=== PATIENT | male | born 1970 | race Caucasian/White ===

== ENCOUNTER 2021-08-18 14:14 | Emergency (ER) | payer OTHER ==
--- NOTE | 2021-08-18 14:40 | ERPHSYRPT ---
- History of Present Illness Time Seen by Provider: 08/18/21 14:39 Source: patient Exam Limitations: no limitations Patient Subjective Stated Complaint: pt here for covid. co loss of taste and smell.headache,fever. he states ill for 7 days had home postive today Triage Nursing Assessment: pt alert, walked in, resp easy, face mask in place, skin w/d/p. has occ cough Physician History: This is a 50-year-old white male who has been having classic COVID-19 symptoms including fever, loss of taste, cough, myalgias and arthralgias, mild shortness of breath, single episode of vomiting greater than 24 hours ago. Patient has had the symptoms for a week they are not worse but they are not significantly improved either. He just wanted to be evaluated to see if there is anything that can be done to help him feel better faster. Patient is now tolerating oral intake. Timing/Duration: week(s) Severity: mild Modifying Factors: Improves With: nothing Associated Symptoms: shortness of breath (Mild), cough (Mild), No chest pain Allergies/Adverse Reactions: No Known Drug Allergies Allergy (Unverified 08/18/21 14:35) Hx Tetanus, Diphtheria Vaccination/Date Given: No Hx Influenza Vaccination/Date Given: No Hx Pneumococcal Vaccination/Date Given: No Immunizations Up to Date: Yes Travel Risk - International Travel Have you traveled outside of the country in past 3 weeks: No - Coronavirus Screening Are you exhibiting any of the following symptoms?: Yes Symptoms: Fever, Cough: New Onset, Vomiting/Diarrhea, Loss of Taste or Smell, Headaches/Body Aches/Fatigue Close contact with a COVID-19 positive Pt in past 14-21 Days: No - Vaccine Status Have you recieved a Covid-19 vaccination: No - Review of Systems Constitutional: Fever Eyes: No Symptoms Ears, Nose, & Throat: No Symptoms Respiratory: Cough, Dyspnea Cardiac: No Symptoms Abdominal/Gastrointestinal: Vomiting (Single episode 2 days ago) Genitourinary Symptoms: No Symptoms Musculoskeletal: Arthralgias, Myalgias Skin: No Symptoms Neurological: No Symptoms Psychological: No Symptoms Endocrine: No Symptoms Hematologic/Lymphatic: No Symptoms Immunological/Allergic: No Symptoms All Other Systems: Reviewed and Negative - Past Medical History Pertinent Past Medical History: Yes Other Medical History: cancer of leg - Past Surgical History Past Surgical History: Yes Other Surgical History: removal of ca from leg - Social History Smoking Status: Never smoker Exposure to second hand smoke: No Drug Use: none Patient Lives Alone: No - Nursing Vital Signs Nursing Vital Signs: Initial Vital Signs Temperature 97.7 F 08/18/21 14:27 Pulse Rate 88 08/18/21 14:27 Respiratory Rate 18 08/18/21 14:27 Blood Pressure 150/99 08/18/21 14:27 O2 Sat by Pulse Oximetry 97 08/18/21 14:27 Pain Scale Pain Intensity 0 - Physical Exam General Appearance: no apparent distress, alert Eye Exam: PERRL/EOMI, eyes nml inspection Ears, Nose, Throat Exam: normal ENT inspection, moist mucous membranes Neck Exam: normal inspection, non-tender, supple, full range of motion Respiratory Exam: normal breath sounds, lungs clear, airway intact, No chest tenderness, No respiratory distress Cardiovascular Exam: regular rate/rhythm, normal heart sounds, normal peripheral pulses Gastrointestinal/Abdomen Exam: soft, normal bowel sounds, No tenderness Rectal Exam: not done Back Exam: normal inspection, normal range of motion, No CVA tenderness, No vertebral tenderness Extremity Exam: normal inspection, normal range of motion, pelvis stable Neurologic Exam: alert, oriented x 3, cooperative, 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, normal mood/affect, nml cerebellar function, nml station & gait, sensation nml Skin Exam: normal color, warm, dry SpO2 Interpretation: normal SpO2: 97 O2 Delivery: Room Air - Course Nursing assessment & vital signs reviewed: Yes Ordered Tests: Active Orders 24 hr Category Date Time Status Isolation, Initiate & Maintain STAT Care 08/18/21 14:41 Active Pulse Oximetry (ED) STAT Care 08/18/21 14:40 Completed CHEST 1 VIEW (PORTABLE) Stat Exams 08/18/21 14:41 Completed INFLUENZA A+B HEATHER Stat Lab 08/18/21 15:20 Completed Medication Summary Discontinued Medications Generic Name Dose Route Start Last Admin Trade Name Freq PRN Reason Stop Dose Admin Hydrocodone Bitart/Acetaminophen 10 ml 08/18/21 15:20 08/18/21 15:44 Hydrocodone-Acetamin 2.5-108/5 Ml Solution PO 08/18/21 15:21 10 ml STAT STA Administration Hydrocodone Bitart/Acetaminophen Confirm 08/18/21 15:42 Hydrocodone-Acetamin 2.5-108/5 Ml Solution Administered 08/18/21 15:43 Dose 10 ml .ROUTE .STK-MED ONE Sodium Chloride 1,000 mls @ 100 mls/hr 08/18/21 14:45 08/18/21 15:41 Sodium Chloride 0.9% 1000 Ml IV 09/17/21 14:44 Not Given .Q10H ASHLEE Ondansetron HCl 4 mg 08/18/21 15:20 08/18/21 15:44 Zofran Odt 4 Mg PO 08/18/21 15:21 4 mg STAT ONE Administration Ondansetron HCl Confirm 08/18/21 15:42 Zofran Odt 4 Mg Administered 08/18/21 15:43 Dose 4 mg .ROUTE .STK-MED ONE Prednisone 20 mg 08/18/21 15:22 08/18/21 15:44 Deltasone 20 Mg PO 08/18/21 15:23 20 mg STAT ONE Administration Prednisone Confirm 08/18/21 15:43 Deltasone 20 Mg Administered 08/18/21 15:44 Dose 20 mg .ROUTE .STK-MED ONE Lab/Rad Data: Laboratory Results 08/18/21 08/18/21 Range/Units 15:20 15:20 Influenza Type A Ag NEGATIVE (NEGATIVE) Influenza Type B Ag NEGATIVE (NEGATIVE) Group A Strep Antibody NOT DETECTED (NEGATIVE) - Progress Progress: improved, pain not gone completely, re-examined Progress Note: 08/18/21 15:47 Chest x-ray shows no cardiopulmonary process Counseled pt/family regarding: lab results, diagnosis, need for follow-up, rad results - Departure Departure Disposition: Home Clinical Impression: COVID-19 virus infection Condition: Stable Critical Care Time: No Referrals: MARLENI FERNANDEZ [Primary Care Provider] - Additional Instructions: Drink plenty of clear liquids. Add ibuprofen for fever control and pain contro l. Take medications as prescribed. Follow-up with your primary care physician for further management. Continue quarantine yourself until your 14 days from the time of your diagnosis has been completed. Prescriptions: Ondansetron ODT 4 MG [Zofran Odt 4 mg] 4 mg PO Q6H PRN PRN #10 tablet PRN Reason: Vomiting Hydrocodone/Acetaminophen [Hydrocodone-Acetamn 7.5-325/15] 10 ml PO Q8H PRN PRN #120 ml MDD 30 ml PRN Reason: Cough Prednisone 10 mg [Deltasone 10 mg] 10 mg PO TID #12 tablet
[2021-08-18] MEDS ORDERED: Sodium Chloride 0.9% 1000 ML 1,000 ML IV SCH (14:45)
[2021-08-18] MEDS ORDERED: ZOFRAN ODT 4 MG PO ONE (15:20)
[2021-08-18] MEDS ORDERED: HYDROCODONE-ACETAMIN 2.5-108/5 ML SOLUTION PO STA (15:20)
[2021-08-18] MEDS ORDERED: DELTASONE 20 MG PO ONE (15:22)
--- NOTE | 2021-08-18 15:22 | XRAY ---
Exam: AP upright portable chest film from 08/18/2021. Comparison: None. Indication: 50-year-old male with cough; Covid-19 positive. Findings: The transverse heart size appears within normal limits. The oplo and mediastinal structures appear unremarkable. There is average inflation of lungs. A small calcified granuloma is seen within the peripheral left midlung field. Otherwise, the lung alvarez appear clear. Specifically, no air space infiltrates or groundglass opacities are seen. Pulmonary vascularity is normal. No pneumothorax or pleural effusion is seen. Some osteophyte formation is seen within the lower thoracic spine. No acute osseous process is seen. Impression: 1. No acute cardiopulmonary disease is seen.
[2021-08-18 15:37] LABS: INFLUENZA A NEGATIVE (NEGATIVE); INFLUENZA B NEGATIVE (NEGATIVE)
[2021-08-18] MEDS ORDERED: HYDROCODONE-ACETAMIN 2.5-108/5 ML SOLUTION ONE (15:42)
[2021-08-18] MEDS ORDERED: ZOFRAN ODT 4 MG ONE (15:42)
[2021-08-18] MEDS ORDERED: DELTASONE 20 MG ONE (15:43)
[2021-08-18 15:50] VITALS: BP 168/102; PULSE 80; O2SAT 96
== END 2021-08-18 15:57 | disposition home or self-care (01) ==
LOC: ED 14:14
DX: U07.1 COVID-19 (principal); R43.8 Other disturbances of smell and taste; R51.9 Headache, unspecified; R50.9 Fever, unspecified
CPT/HCPCS: 71045; 87400; 87651; 94760; 99284; Q0162; A9270-GY

== ENCOUNTER 2025-02-23 10:38 | Emergency (ER) | payer SELFPAY ==
[2025-02-23 10:43] VITALS: TEMP 97.8
[2025-02-23] MEDS ORDERED: Ativan 2 MG/1 ML VIAL ONE (10:53)
[2025-02-23] MEDS ORDERED: Sodium Chloride 0.9% 1000 ML 1,000 ML ONE (10:54)
[2025-02-23] MEDS: Ativan 2 MG/1 ML VIAL IV ONE (10:55)
[2025-02-23] MEDS: Sodium Chloride 0.9% 1000 ML 1,000 ML IV STA (10:56)
[2025-02-23 11:04] LABS: A-aADO2 42; ABG HEMOGLOBIN 15.4; ARTERIAL BLD GAS O2 SATURATION 99.7 % (95-100); ARTERIAL BLOOD GAS FIO2 28 %; ARTERIAL BLOOD GAS PO2 139 mmHg (75-100); CARBOXYHEMOGLOBIN 0.9 % THgb (0.0-6.9); HCO3- 17.7 (22-28); HGB O2 SAT 97.7 g/dF (94-100); Lactic Acid 3.7 (0.4-2.0); Methhemoglobin 1.1 % (1.4-1.5); paO2 pAO1 0.77
--- NOTE | 2025-02-23 11:05 | ERPHSYRPT ---
- History of Present Illness Time Seen by Provider: 02/23/25 10:50 Source: patient Exam Limitations: no limitations Patient Subjective Stated Complaint: patient state he stoppped smoking meth a week ago and he woke up this morning short of breath and struggling to breath Triage Nursing Assessment: patient is alert and oriented x3, hes is extremely anxious and hyperventilating. He was brought in by wheelchair has been trying to get off meth which he smokes daily said last time he smoked was monday. lung sounds clear bilaterally. Physician History: 54yo m pmhx methamphetamine abuse presents via private vehicle for shortness of breath. Pt reports he woke up sob at 6am today, reports he feels anxious as well. Pt states he is feeling lightheaded. Pt denies any MCARTHUR, cp, n/v/d, constipation. Pt endorses he last smoked meth 5 days ago, he is trying to quit w/o the help of medications. Pt reports he had a beer this AM to try to help w/ his anxiety but it did not. Timing/Duration: today Activities at Onset: none Severity of Dyspnea-Max: moderate Severity of Dyspnea-Current: moderate Possible Cause: no prior episodes Associated Symptoms: anxiety, lightheadedness, No chest pain/discomfort, No edema, No wheezing, No chills, No productive cough Allergies/Adverse Reactions: No Known Drug Allergies Allergy (Verified 02/23/25 11:03) Hx Tetanus, Diphtheria Vaccination/Date Given: No Hx Influenza Vaccination/Date Given: No Hx Pneumococcal Vaccination/Date Given: No Travel Risk - International Travel Have you traveled outside of the country in past 3 weeks: No - Emerging Infectious Disease Are you exhibiting symptoms associated with any current EIDs: No - Review of Systems Constitutional: No Fever, No Chills Eyes: No Vision Changes Respiratory: Dyspnea, No Cough, No Stridor, No Wheezing Cardiac: No Chest Pain, No Edema, No Palpitations Abdominal/Gastrointestinal: No Symptoms Psychological: Drug Abuse, Anxiety - Past Medical History Pertinent Past Medical History: Yes Other Medical History: cancer of leg - Past Surgical History Past Surgical History: Yes Other Surgical History: removal of ca from leg - Social History Smoking Status: Never smoker Drug Use: methamphetamines - Social Determinants of Health Will the patient participate in the screening: Unable to obtain - Nursing Vital Signs Nursing Vital Signs: Initial Vital Signs Temperature 97.8 F 02/23/25 10:38 Pulse Rate 88 02/23/25 10:38 Respiratory Rate 28 H 02/23/25 10:38 Blood Pressure 172/93 02/23/25 10:38 O2 Sat by Pulse Oximetry 91 L 02/23/25 10:38 Pain Scale Pain Intensity 0 - Physical Exam General Appearance: mild distress, anxiety Eye Exam: PERRL/EOMI, eyes nml inspection Neck Exam: normal inspection, non-tender, No meningismus, No lymphadenopathy (R), No lymphadenopathy (L), No subcutaneous emphysema Respiratory Exam: normal breath sounds, lungs clear, airway intact, other (tachypnea), No chest tenderness, No respiratory distress, No crackles/rales, No rhonchi, No wheezing, No stridor Cardiovascular/Chest Exam: normal heart sounds, regular rate/rhythm, normal peripheral pulses, No murmur, No edema Abdominal/Gastrointestinal Exam: soft, normal bowel sounds, No tenderness, No distention Neurologic Exam: alert, oriented x 3, cooperative Skin Exam: normal color, warm, dry SpO2 Interpretation: normal SpO2: 99 O2 Delivery: Nasal Cannula (2L) - Course EKG Interpreted by Me: RATE (89), Sinus Rhythm, Non-specific ST Changes (not suggestive of acute ischemia) Ordered Tests: Active Orders 24 hr Category Date Time Status EKG-ER Only STAT Care 02/23/25 10:49 Active CHEST 2 VIEWS (PA AND LAT) Stat Exams 02/23/25 11:36 Taken ARTERIAL BLOOD GASES Stat Lab 02/23/25 10:49 Completed CBC W DIFF Stat Lab 02/23/25 11:05 Completed CMP Stat Lab 02/23/25 11:05 Completed D-DIMER QUANTITATIVE Stat Lab 02/23/25 11:05 Completed ETHYL ALCOHOL Stat Lab 02/23/25 11:05 Completed Lactic Acid Stat Lab 02/23/25 10:49 Completed Lactic Acid Stat Lab 02/23/25 13:06 Completed SALICYLATE Stat Lab 02/23/25 11:05 Completed TROPONIN Q4H Lab 02/23/25 11:05 Completed TROPONIN Q4H Lab 02/23/25 13:10 Completed TROPONIN Q4H Lab 02/23/25 19:00 Ordered UA W/RFX UR CULTURE Stat Lab 02/23/25 11:50 Completed Urine Triage Profile Stat Lab 02/23/25 11:50 Completed Medication Summary Discontinued Medications Generic Name Dose Route Start Last Admin Trade Name Isacc PRN Reason Stop Dose Admin Sodium Chloride 1,000 mls @ 999 mls/hr 02/23/25 10:53 02/23/25 12:24 Sodium Chloride 0.9% 1000 Ml IV 02/23/25 11:53 Infused .Q1H1M STA Infusion Sodium Chloride Confirm 02/23/25 10:54 Sodium Chloride 0.9% 1000 Ml Administered 02/23/25 10:55 Dose 1,000 mls @ ud .ROUTE .STK-MED ONE Lorazepam 1 mg 02/23/25 10:52 02/23/25 10:55 Lorazepam 2 Mg/1 Ml 2 Mg Vial IV 02/23/25 10:53 1 mg STAT ONE Administration Lorazepam Confirm 02/23/25 10:53 Lorazepam 2 Mg/1 Ml 2 Mg Vial Administered 02/23/25 10:54 Dose 2 mg .ROUTE .STK-MED ONE Lab/Rad Data: Laboratory Result Diagrams 02/23/25 11:05 02/23/25 11:05 Laboratory Results 02/23/25 02/23/25 02/23/25 Range/Units 13:10 13:06 11:50 WBC (4.23-9.07) x10^3/uL RBC (4.63-6.08) x10^6/uL Hgb (13.7-17.5) g/dL Hct (40.1-51.0) % MCV (79.0-92.2) fL MCH (25.7-32.2) pg MCHC (32.3-36.5) g/dL RDW (11.6-14.4) % Plt Count (163-337) x10^3/uL MPV (9.4-12.4) fL Gran % (34.0-67.9) % Immature Gran % (Auto) (0.001-0.429) % Nucleat RBC Rel Count (0.00-0.2) % Eos # (Auto) (0.04-0.54) x10^3/uL Immature Gran # (Auto) (0.001-0.031) x10^3u/L Absolute Lymphs (auto) (1.32-3.57) x10^3/uL Absolute Monos (auto) (0.30-0.82) x10^3/uL Absolute Nucleated RBC (0.00-0.012) x10^3u/L Lymphocytes % (21.8-53.1) % Monocytes % (5.3-12.2) % Eosinophils % (0.8-7.0) % Basophils % (0.2-1.2) % Absolute Granulocytes (1.78-5.38) x10^3/uL Basophils # (0.01-0.08) x10^3/uL D-Dimer (0.0-0.50) mg/L Puncture Site pCO2 (35-45) mmHg pO2 (75-100) mmHg Base Excess (-2.0-2.0) O2 Saturation (94-100) g/dF ABG pH (7.35-7.45) ABG HCO3 (22-28) ABG O2 Sat (Measured) (95-100) % Ariel Test A-a Gradient a/A Ratio Hemoglobin Carboxyhemoglobin (0.0-6.9) % THgb Methemoglobin (1.4-1.5) % Potassium (3.5-5.1) Temperature C POC O2 Flow Rate % Sodium (135-145) mmol/L Chloride (98-107) mmol/L Carbon Dioxide (22-30) mmol/L Anion Gap (5-15) MEQ/L BUN (9-20) mg/dL Creatinine (0.66-1.25) mg/dL Estimated GFR ML/MIN Glucose (74-106) mg/dL Lactic Acid 1.1 (0.4-2.0) Calcium (8.4-10.2) mg/dL Total Bilirubin (0.2-1.3) mg/dL AST (17-59) U/L ALT (0-50) U/L Alkaline Phosphatase (38-126) U/L Troponin I < 0.012 (0.000-0.033) ng/mL Serum Total Protein (6.3-8.2) g/dL Albumin (3.5-5.0) g/dL Urine Color (Yellow) Urine Appearance (Clear) Urine pH (4.6-8.0) Ur Specific [place] (1.005-1.030) Urine Protein (Negative) Urine Glucose (UA) (Negative) mg/dL Urine Ketones (Negative) Urine Blood (Negative) Urine Nitrite (Negative) Urine Bilirubin (Negative) Urine Urobilinogen (0.2) mg/dL Ur Leukocyte Esterase (Negative) U Hyaline Cast (Auto) (0-2) /LPF Urine Microscopic RBC (0-5) /HPF Urine Microscopic WBC (0-5) /HPF Ur Epithelial Cells (None Seen) /HPF Urine Bacteria (None Seen) /HPF Urine Culture Reflexed (NO) Salicylates (2-20) mg/dL Urine Opiates Level NEGATIVE (NEGATIVE) Ur Methadone NEGATIVE (NEGATIVE) Urine Barbiturates NEGATIVE (NEGATIVE) Ur Phencyclidine (PCP) NEGATIVE (NEGATIVE) Urine Amphetamine NEGATIVE (NEGATIVE) U Benzodiazepine Level NEGATIVE (NEGATIVE) Urine Cocaine NEGATIVE (NEGATIVE) Urine Marijuana (THC) NEGATIVE (NEGATIVE) Ethyl Alcohol (0-10) mg/dL 02/23/25 02/23/25 02/23/25 Range/Units 11:50 11:05 11:05 WBC (4.23-9.07) x10^3/uL RBC (4.63-6.08) x10^6/uL Hgb (13.7-17.5) g/dL Hct (40.1-51.0) % MCV (79.0-92.2) fL MCH (25.7-32.2) pg MCHC (32.3-36.5) g/dL RDW (11.6-14.4) % Plt Count (163-337) x10^3/uL MPV (9.4-12.4) fL Gran % (34.0-67.9) % Immature Gran % (Auto) (0.001-0.429) % Nucleat RBC Rel Count (0.00-0.2) % Eos # (Auto) (0.04-0.54) x10^3/uL Immature Gran # (Auto) (0.001-0.031) x10^3u/L Absolute Lymphs (auto) (1.32-3.57) x10^3/uL Absolute Monos (auto) (0.30-0.82) x10^3/uL Absolute Nucleated RBC (0.00-0.012) x10^3u/L Lymphocytes % (21.8-53.1) % Monocytes % (5.3-12.2) % Eosinophils % (0.8-7.0) % Basophils % (0.2-1.2) % Absolute Granulocytes (1.78-5.38) x10^3/uL Basophils # (0.01-0.08) x10^3/uL D-Dimer < 0.19 (0.0-0.50) mg/L Puncture Site pCO2 (35-45) mmHg pO2 (75-100) mmHg Base Excess (-2.0-2.0) O2 Saturation (94-100) g/dF ABG pH (7.35-7.45) ABG HCO3 (22-28) ABG O2 Sat (Measured) (95-100) % Ariel Test A-a Gradient a/A Ratio Hemoglobin Carboxyhemoglobin (0.0-6.9) % THgb Methemoglobin (1.4-1.5) % Potassium (3.5-5.1) Temperature C POC O2 Flow Rate % Sodium (135-145) mmol/L Chloride (98-107) mmol/L Carbon Dioxide (22-30) mmol/L Anion Gap (5-15) MEQ/L BUN (9-20) mg/dL Creatinine (0.66-1.25) mg/dL Estimated GFR ML/MIN Glucose (74-106) mg/dL Lactic Acid (0.4-2.0) Calcium (8.4-10.2) mg/dL Total Bilirubin (0.2-1.3) mg/dL AST (17-59) U/L ALT (0-50) U/L Alkaline Phosphatase (38-126) U/L Troponin I < 0.012 (0.000-0.033) ng/mL Serum Total Protein (6.3-8.2) g/dL Albumin (3.5-5.0) g/dL Urine Color Yellow (Yellow) Urine Appearance Clear (Clear) Urine pH 8.5 A (4.6-8.0) Ur Specific [place] 1.020 (1.005-1.030) Urine Protein 100 A (Negative) Urine Glucose (UA) Negative (Negative) mg/dL Urine Ketones Trace A (Negative) Urine Blood Negative (Negative) Urine Nitrite Negative (Negative) Urine Bilirubin Negative (Negative) Urine Urobilinogen 1.0 A (0.2) mg/dL Ur Leukocyte Esterase Negative (Negative) U Hyaline Cast (Auto) NONE SEEN (0-2) /LPF Urine Microscopic RBC 0-2 (0-5) /HPF Urine Microscopic WBC 0-2 (0-5) /HPF Ur Epithelial Cells None Seen (None Seen) /HPF Urine Bacteria None Seen (None Seen) /HPF Urine Culture Reflexed NO (NO) Salicylates (2-20) mg/dL Urine Opiates Level (NEGATIVE) Ur Methadone (NEGATIVE) Urine Barbiturates (NEGATIVE) Ur Phencyclidine (PCP) (NEGATIVE) Urine Amphetamine (NEGATIVE) U Benzodiazepine Level (NEGATIVE) Urine Cocaine (NEGATIVE) Urine Marijuana (THC) (NEGATIVE) Ethyl Alcohol (0-10) mg/dL 02/23/25 02/23/25 02/23/25 Range/Units 11:05 11:05 10:49 WBC 7.7 (4.23-9.07) x10^3/uL RBC 4.40 L (4.63-6.08) x10^6/uL Hgb 14.7 (13.7-17.5) g/dL Hct 41.9 (40.1-51.0) % MCV 95.2 H (79.0-92.2) fL MCH 33.4 H (25.7-32.2) pg MCHC 35.1 (32.3-36.5) g/dL RDW 11.9 (11.6-14.4) % Plt Count 390 H (163-337) x10^3/uL MPV 9.7 (9.4-12.4) fL Gran % 54.2 (34.0-67.9) % Immature Gran % (Auto) 0.3 (0.001-0.429) % Nucleat RBC Rel Count 0.0 (0.00-0.2) % Eos # (Auto) 0.17 (0.04-0.54) x10^3/uL Immature Gran # (Auto) 0.02 (0.001-0.031) x10^3u/L Absolute Lymphs (auto) 2.63 (1.32-3.57) x10^3/uL Absolute Monos (auto) 0.64 (0.30-0.82) x10^3/uL Absolute Nucleated RBC 0.00 (0.00-0.012) x10^3u/L Lymphocytes % 34.4 (21.8-53.1) % Monocytes % 8.4 (5.3-12.2) % Eosinophils % 2.2 (0.8-7.0) % Basophils % 0.5 (0.2-1.2) % Absolute Granulocytes 4.15 (1.78-5.38) x10^3/uL Basophils # 0.04 (0.01-0.08) x10^3/uL D-Dimer (0.0-0.50) mg/L Puncture Site RIGHT RADIAL pCO2 15 L* (35-45) mmHg pO2 139 H* (75-100) mmHg Base Excess 1.0 (-2.0-2.0) O2 Saturation 97.7 (94-100) g/dF ABG pH 7.68 H* (7.35-7.45) ABG HCO3 17.7 L (22-28) ABG O2 Sat (Measured) 99.7 (95-100) % Ariel Test YES A-a Gradient 42 a/A Ratio 0.77 Hemoglobin 15.4 Carboxyhemoglobin 0.9 (0.0-6.9) % THgb Methemoglobin 1.1 L (1.4-1.5) % Potassium 4.0 4.0 (3.5-5.1) Temperature 37.0 C POC O2 Flow Rate 28 % Sodium 138 (135-145) mmol/L Chloride 105 (98-107) mmol/L Carbon Dioxide 18 L (22-30) mmol/L Anion Gap 19.4 H (5-15) MEQ/L BUN 15 (9-20) mg/dL Creatinine 0.80 (0.66-1.25) mg/dL Estimated GFR 105.2 ML/MIN Glucose 132 H (74-106) mg/dL Lactic Acid 3.7 H (0.4-2.0) Calcium 9.6 (8.4-10.2) mg/dL Total Bilirubin 0.40 (0.2-1.3) mg/dL AST 51 (17-59) U/L ALT 64 H (0-50) U/L Alkaline Phosphatase 68 (38-126) U/L Troponin I (0.000-0.033) ng/mL Serum Total Protein 7.6 (6.3-8.2) g/dL Albumin 4.6 (3.5-5.0) g/dL Urine Color (Yellow) Urine Appearance (Clear) Urine pH (4.6-8.0) Ur Specific [place] (1.005-1.030) Urine Protein (Negative) Urine Glucose (UA) (Negative) mg/dL Urine Ketones (Negative) Urine Blood (Negative) Urine Nitrite (Negative) Urine Bilirubin (Negative) Urine Urobilinogen (0.2) mg/dL Ur Leukocyte Esterase (Negative) U Hyaline Cast (Auto) (0-2) /LPF Urine Microscopic RBC (0-5) /HPF Urine Microscopic WBC (0-5) /HPF Ur Epithelial Cells (None Seen) /HPF Urine Bacteria (None Seen) /HPF Urine Culture Reflexed (NO) Salicylates < 1.0 L (2-20) mg/dL Urine Opiates Level (NEGATIVE) Ur Methadone (NEGATIVE) Urine Barbiturates (NEGATIVE) Ur Phencyclidine (PCP) (NEGATIVE) Urine Amphetamine (NEGATIVE) U Benzodiazepine Level (NEGATIVE) Urine Cocaine (NEGATIVE) Urine Marijuana (THC) (NEGATIVE) Ethyl Alcohol < 10 (0-10) mg/dL - Progress Progress: improved Air Movement: good Progress Note: 02/23/25 11:14 ABG showed pH 7.68 pCO2 15 lactic 3.8 02/23/25 11:29 pt placed on nonrebreather in setting of hyperventilation 02/23/25 12:15 pt resting comfortably on re-exam no longer on non-rebreather, RR 15, sat 100% on RA, much less anxious following dose of lorazepam 02/23/25 13:26 tox screen negative repeat lactate 1.1 pt continues to rest comfortably, repeat trop pending 02/23/25 13:44 trops negative x 2 tachypnea likely 2/2 acute anxiety in setting of total resolution w/ lorazepam plan for discharge home, need to call to establish care with Dr Ball tomorrow will send home with course of hydroxyzine that can be used during episodes of acute anxiety 1-2 times per day recommend discussing methamphetamine detox with PCP return to ED if: develop chest pain, develop shortness of breath, develop seizures, develop tremors, develop significant abdominal pain or nausea/vomiting, develop change in mental status Blood Culture(s) Obtained: No Antibiotics given: No Counseled pt/family regarding: lab results, diagnosis, need for follow-up, rad results Medical Desision Making - Diagnostic Testing Diagnostic test were ordered, analyzed, and reviewed by me: Yes Radiological Interpretation: Interpreted by me, Reviewed by me - Risk of complications Minimal Risk: Minimal risk of morbidity - Departure Departure Disposition: Home Clinical Impression: Tachypnea, Anxiety, Respiratory alkalosis Condition: Stable Critical Care Time: No Referrals: MARLENI FERNANDEZ [Primary Care Provider] - Follow up/PCP as directed Additional Instructions: plan for discharge home, need to call to establish care with Dr Ball tomorrow will send home with course of hydroxyzine that can be used during episodes of acute anxiety 1-2 times per day recommend discussing methamphetamine detox with PCP return to ED if: develop chest pain, develop shortness of breath, develop seizures, develop tremors, develop significant abdominal pain or nausea/vomiting, develop change in mental status Prescriptions: Hydroxyzine HCl 25 mg [Atarax 25 mg] 25 mg PO Q12H PRN 7 Days #14 tablet PRN Reason: Anxiety
[2025-02-23 11:06] LABS: ABG SITE RIGHT RADIAL; ALLEN TEST OK? YES; ARTERIAL BLOOD GAS PCO2 15 mmHg (35-45); ARTERIAL BLOOD GAS pH 7.68 (7.35-7.45)
[2025-02-23 11:09] LABS: Absolute Neutrophil Ct (ANC) 4.15 x10^3/uL (1.78-5.38); BASOPHIL % 0.5 % (0.2-1.2); Basophil (Absolute #) 0.04 x10^3/uL (0.01-0.08); Eosinophil % 2.2 % (0.8-7.0); Eosinophil (Absolute #) 0.17 x10^3/uL (0.04-0.54); Hematocrit 41.9 % (40.1-51.0); Hemoglobin 14.7 g/dL (13.7-17.5); IMMATURE GRAN # 0.02 x10^3u/L (0.001-0.031); IMMATURE GRAN % 0.3 % (0.001-0.429); Lymphocyte (Absolute #) 2.63 x10^3/uL (1.32-3.57); Lymphocytes % 34.4 % (21.8-53.1); Mean Cell Volume 95.2 fL (79.0-92.2); Mean Corpuscular Hemoglobin 33.4 pg (25.7-32.2); Mean Corpuscular Hgb Concent. 35.1 g/dL (32.3-36.5); Mean Platelet Volume 9.7 fL (9.4-12.4); Monocyte (Absolute #) 0.64 x10^3/uL (0.30-0.82); Monocytes % 8.4 % (5.3-12.2); Neutrophil % 54.2 % (34.0-67.9); Platelet Count 390 x10^3/uL (163-337); Red Cell Distribution Width 11.9 % (11.6-14.4); White Blood Count 7.7 x10^3/uL (4.23-9.07)
[2025-02-23 11:23] LABS: ALBUMIN 4.6 g/dL (3.5-5.0); ALKALINE PHOSPHATASE 68 U/L (38-126); ANION GAP 19.4 MEQ/L (5-15); BLOOD UREA NITROGEN 15 mg/dL (9-20); CHLORIDE 105 mmol/L (98-107); Calcium 9.6 mg/dL (8.4-10.2); Carbon Dioxide 18 mmol/L (22-30); EST GLOMERULAR FILTRATION RATE 105.2 ML/MIN; ETHYL ALCOHOL < 10 mg/dL (0-10); Glucose 132 mg/dL (74-106); SALICYLATE < 1.0 mg/dL (2-20); SGOT/AST 51 U/L (17-59); SGPT/ALT 64 U/L (0-50); SODIUM 138 mmol/L (135-145); Total Protein 7.6 g/dL (6.3-8.2)
[2025-02-23 12:10] LABS: Amphetamine,Urine NEGATIVE (NEGATIVE); Barbiturate,Urine NEGATIVE (NEGATIVE); Benzodiazepine,Urine NEGATIVE (NEGATIVE); Cocaine,Urine NEGATIVE (NEGATIVE); Methadone,Urine NEGATIVE (NEGATIVE); Opiate,Urine NEGATIVE (NEGATIVE); PCP,Urine NEGATIVE (NEGATIVE); THC,Urine NEGATIVE (NEGATIVE)
[2025-02-23 12:12] LABS: Appearance Clear (Clear); Bacteria None Seen /HPF (None Seen); Bilirubin Negative (Negative); Blood Negative (Negative); Epithelial Cells None Seen /HPF (None Seen); Glucose, Urine Negative (Negative); Hyaline Casts NONE SEEN /LPF (0-2); Ketones Trace (Negative); Leukocyte Esterase Negative (Negative); Nitrite Negative (Negative); Ph 8.5 (4.6-8.0); Protein,Urine Dip 100 (Negative); RBC 0-2 /HPF (0-5); WBC 0-2 /HPF (0-5)
[2025-02-23 13:29] VITALS: O2SAT 99
[2025-02-23 14:04] VITALS: BP 141/88; PULSE 76; RESP 18
--- NOTE | 2025-02-23 19:18 | XRAY ---
Indication: Tachypnea. Short of breath. Comparison: August 18, 2021 PA/lateral chest again hyperinflated and clear with incidental left midlung calcified granuloma. Heart not enlarged. Bony thorax intact again with mild degenerative changes. Impression: Continued nonacute chest with chronic features.
== END 2025-02-23 14:09 | disposition home or self-care (01) ==
LOC: ED 10:38
DX: R06.82 Tachypnea, not elsewhere classified (principal); F41.9 Anxiety disorder, unspecified; E87.3 Alkalosis; R42 Dizziness and giddiness; Z79.899 Other long term (current) drug therapy
CPT/HCPCS: 36415; 36600; 71046; 80053; 80179; 80307; 81001; 82077; 82375; 82803; 83605; 84484; 85025; 85379; 93005; 96361; 96374; 99284; 99285; J2060